=== PATIENT | female | born 1955 | race Two or more races ===

== ENCOUNTER 2023-01-20 11:00 | Outpatient (CLI) | payer OTHER, MEDICAID ==
[~2023-01-20] VITALS: Ht 167.6 cm; Wt 65.3 kg
[2023-01-20] MEDS ORDERED: OXYB5TAB24 PO (12:31)
[2023-01-20] MEDS ORDERED: LOSA25TA15 PO (12:31)
[2023-01-20] MEDS ORDERED: CYCL-837 PO (12:31)
[2023-01-20] MEDS ORDERED: ESZO1TAB21 PO (12:31)
[2023-01-20] MEDS ORDERED: AMLO1TAB21 PO (12:31)
[2023-01-20] MEDS ORDERED: METF-370 PO (12:31)
[2023-01-20] MEDS ORDERED: MULT-927 PO (12:31)
[2023-01-20] MEDS ORDERED: PRAM1TAB33 PO (12:31)
== END 2023-01-20 11:43 | disposition home or self-care (01) ==
LOC: LAB 11:00 → EDSTATUS 01-24 06:45
PROVIDERS: ATTEND Orthopaedic Surgery Adult Reconstructive Orthopaedic Surgery
DX: Z01.812 Encounter for preprocedural laboratory examination (principal); M16.12 Unilateral primary osteoarthritis, left hip
CPT/HCPCS: 86850; 86900; 86901

== ENCOUNTER 2023-02-13 18:07 | Emergency (ER) | payer OTHER, MEDICAID ==
[~2023-02-13] VITALS: Ht 167.6 cm; Wt 65.9 kg
[~2023-02-13 18:07] MED LIST: AMLO1TAB21 PO; CYCL-837 PO; ESZO1TAB21 PO; LOSA25TA15 PO; METF-370 PO; MULT-927 PO; OXYB5TAB24 PO; PRAM1TAB33 PO
[2023-02-13] MEDS ORDERED: cefTRIAXone SOD 1,000 MG VL IM ONE (20:15)
[2023-02-13] MEDS ORDERED: ACETAMINOPHEN 500 MG TAB PO ONE (20:15)
[2023-02-13] MEDS ORDERED: AUG875T PO ×3 (20:20→20:24)
[2023-02-13] MEDS ORDERED: ACET500T58 PO ×3 (20:20→20:24)
[2023-02-13 20:26] VITALS: BP 112/62; PULSE 88; RESP 17; TEMP 98.1; O2SAT 97
== END 2023-02-13 20:29 | disposition home or self-care (01) ==
LOC: ER 18:07
DX: K04.7 Periapical abscess without sinus (principal); E11.9 Type 2 diabetes mellitus without complications; I10 Essential (primary) hypertension; E78.5 Hyperlipidemia, unspecified; Z90.89 Acquired absence of other organs; Z88.6 Allergy status to analgesic agent
CPT/HCPCS: 96372; 99283; J0696

== ENCOUNTER 2023-04-08 14:27 | Emergency (ER) | payer OTHER, MEDICAID ==
[~2023-04-08] VITALS: Ht 167.6 cm; Wt 72.8 kg
[~2023-04-08 14:27] MED LIST changes: +ACET500T58 PO; +AUG875T PO
[2023-04-08 15:06] VITALS: BP 113/64; PULSE 87; RESP 18; TEMP 99.4; O2SAT 95
[2023-04-08] MEDS ORDERED: TRIA0.1O TOP (15:07)
[2023-04-08] MEDS ORDERED: METH4PAK PO (15:07)
== END 2023-04-08 15:16 | disposition home or self-care (01) ==
LOC: ER 14:27
DX: L20.9 Atopic dermatitis, unspecified (principal); E11.9 Type 2 diabetes mellitus without complications; E78.5 Hyperlipidemia, unspecified; I10 Essential (primary) hypertension; F12.10 Cannabis abuse, uncomplicated; Z88.6 Allergy status to analgesic agent